=== PATIENT | female | born 1980 | race African-American/Black ===

== ENCOUNTER 2016-06-06 23:21 | Emergency (ER) | payer BC ==
[~2016-06-06] VITALS: Ht 177.8 cm; Wt 81.6 kg
[~2016-06-06 23:21] MED LIST: AMOXICILLIN500 MG ORAL; CIPROFLOXACIN500 M2 ORAL; CYCLOBENZAPRINE10 MG ORAL; IBUPROFEN600 MG ORAL; MEDROL DOSEPAK4 MG ORAL; NKM
[2016-06-06] MEDS ORDERED: KEFLEX500 MG ORAL (23:40)
[2016-06-06 23:48] VITALS: BP 116/80
[2016-06-07] VITALS: BP 116/80
--- NOTE | 2016-06-07 02:33 | Emergency Room Report ---
History of Present Illness General Chief Complaint: Skin Rash/Abscess Source: Patient Present Illness HPI 36-year-old female presents ED complaining of insect bites to her legs. States that she just returned from a trip to the [facility]. States she was bitten by multiple mosquitoes, mostly on her legs. Patient notes there is redness and swelling and multiple areas of her legs. Denies any pain. Denies any fevers or chills. States they're very itchy. No other aggravating relieving factors. Denies any other associated symptoms Allergies: Coded Allergies: No Known Allergies (Unverified , 06/02/15) Patient History Past Medical History: none Past Surgical History: none Pertinent Family History: none Social History: Denies: alcohol use, drug use, smoking Last Menstrual Period: May Now: No Immunizations: UTD Reviewed Nursing Documentation: PMH: Agreed, PSxH: Agreed Nursing Documentation-PMH Past Medical History: No Stated History Hx Cardiac Problems: No Hx Cancer: No Hx Gastrointestinal Problems: No Hx Neurological Problems: No Review of Systems All Other Systems: negative except mentioned in HPI Physical Exam Vital Signs Date Time Temp Pulse Resp B/P Pulse Ox O2 Delivery O2 Flow Rate FiO2 06/06/16 23:28 97.9 83 16 116/80 99 06/06/16 23:48 Room Air Sp02 EP Interpretation: reviewed, normal General Appearance: no apparent distress, alert, GCS 15, non-toxic Head: normocephalic Eyes: bilateral eye PERRL, bilateral eye normal inspection ENT: normal ENT inspection Neck: normal inspection Respiratory: normal inspection Cardiovascular #1: normal inspection Gastrointestinal: normal inspection Rectal: deferred Genitourinary: no CVA tenderness Musculoskeletal: back normal, gait/station normal, normal range of motion, non- tender Neurologic: alert, oriented x3, responsive, motor strength/tone normal, sensory intact, speech normal Psychiatric: normal inspection Skin: rash - multiple areas of erythema/induration to bilateral legs. no fluctuance. no discharge Lymphatic: normal inspection Medical Decision Making Diagnostic Impression: Primary Impression: Insect bite Qualified Codes: W57.XXXA - Bitten or stung by nonvenomous insect and other nonvenomous arthropods, initial encounter ER Course Hospital Course 36-year-old female presents to ED with multiple areas of redness, swelling to legs Differential diagnoses include: Cellulitis, dermatitis, insect bite, abscess Clinical course Patient placed on stretcher. After initial history, physical exam reveals a female in no acute distress. On exam there are multiple areas of erythema and induration noted to the legs bilaterally. No fluctuance or discharge. Suggested of insect bites. Slightly warm to touch. We will treat with antibiotics. Recommend warm compresses Diagnosis - insect bite stable and discharged to home with prescription for Keflex. Instructed to followup with PMD. Instructed return to ED if symptoms recur or worsen Last Vital Signs Date Time Temp Pulse Resp B/P Pulse Ox O2 Delivery O2 Flow Rate FiO2 06/07/16 00:00 83 16 116/80 99 Room Air 06/06/16 23:48 97.8 Status: improved Disposition: HOME, SELF-CARE Condition: Stable Scripts Cephalexin* (KEFLEX*) 500 Mg Capsule 500 MG ORAL Q6H, #28 CAP 0 Refills Prov: SYDNIE RODRIGUEZ M.D. 06/06/16 Referrals: NITA SAUNDERS (PCP) Patient Instructions: Insect Bite, [id number] SYDNIE RODRIGUEZ M.D. Jun 07, 2016 02:33
== END 2016-06-07 00:03 | disposition home or self-care (01) ==
LOC: EMR 23:36
DX: S80.861A Insect bite (nonvenomous), right lower leg, initial encounter (principal); S80.862A Insect bite (nonvenomous), left lower leg, initial encounter; W57.XXXA Bitten or stung by nonvenomous insect and other nonvenomous arthropods, initial encounter; X58.XXXA Exposure to other specified factors, initial encounter; Y92.9 Unspecified place or not applicable
CPT/HCPCS: 99283